=== PATIENT | female | born 1960 | race Caucasian/White ===

== ENCOUNTER 2017-07-15 10:03 | Emergency (ER) | payer SELFPAY ==
[~2017-07-15] VITALS: Ht 165.1 cm; Wt 72.0 kg
[~2017-07-15 10:03] MED LIST: GABA100C4 PO; PERC5TAB12 PO
[2017-07-15 10:10] VITALS: BP 157/92; PULSE 88; RESP 16; TEMP 99.7; O2SAT 99
[2017-07-15] MEDS ORDERED: AUGM500T7 PO (10:25)
--- NOTE | 2017-07-15 10:25 | PD ---
HPI Chief Complaint: Bite or Sting Time Seen by Provider: 10:21 Travel History International Travel<30 days: No Contact w/Intl Traveler<30days: No Traveled to known affect area: No History of Present Illness HPI 57-year-old female patient presents to the ER today because she states that she was bitten by her cat on the left arm and right hand on Thursday, and the left arm area is getting more red and swollen. She denies any fevers or any other issues. She states that her cat is entirely indoor although it has not had rabies vaccination in several years. She states that the cat has not been behaving abnormally and that the cat has not had any contact with any other outdoor animals. Modifying Factors: None Associated Signs & Symptoms: Cat bites to the arm and hand Risk Factors: None PFSH Past Medical History Diminished Hearing: No Reproductive: Yes (IUD) Shingles: Yes Tetanus Vaccination: Unknown Influenza Vaccination: No ?: Not Past Surgical History Tonsillectomy: Yes Other Surgery: Yes (BIOPSY OF BREAST) Social History Alcohol Use: Yes (WEEKENDS) Tobacco Use: Yes (1 PPD) Substance Use: No Allergies-Medications (Allergen,Severity, Reaction): Coded Allergies: No Known Allergies (Verified , 07/15/17) Reported Meds & Prescriptions Reported Meds & Active Scripts Active No Active Prescriptions or Reported Medications Review of Systems Except as stated in HPI: all other systems reviewed are Neg Physical Exam Narrative GENERAL: Well-developed middle age white female patient currently in no acute distress. Awake and oriented 3. SKIN: Focused skin assessment warm/dry. Notable 2 puncture wounds and abrasion to the left arm with surrounding erythema with no fluctuance, mildly tender palpation; and 2 puncture wounds to the right hand with no significant surrounding erythema. HEAD: Atraumatic. Normocephalic. EYES: Pupils equal and round. No scleral icterus. No injection or drainage. ENT: No nasal bleeding or discharge. Mucous membranes pink and moist. NECK: Trachea midline. No JVD. CARDIOVASCULAR: Regular rate and rhythm. No murmur appreciated. RESPIRATORY: No accessory muscle use. Clear to auscultation. Breath sounds equal bilaterally. GASTROINTESTINAL: Abdomen soft, non-tender, nondistended. Hepatic and splenic margins not palpable. MUSCULOSKELETAL: No obvious deformities. No clubbing. No cyanosis. No edema. NEUROLOGICAL: Awake and alert. No obvious cranial nerve deficits. Motor grossly within normal limits. Normal speech. PSYCHIATRIC: Appropriate mood and affect; insight and judgment normal. Data Data Last Documented VS Vital Signs Date Time Temp Pulse Resp B/P (MAP) Pulse Ox O2 Delivery O2 Flow Rate FiO2 07/15/17 10:10 99.7 88 16 157/92 (113) 99 MDM Medical Decision Making Medical Screen Exam Complete: Yes Emergency Medical Condition: Yes Medical Record Reviewed: Yes Differential Diagnosis Cat bite to the hand/cellulitis Narrative Course Animal is fairly low risk for rabies since is entirely indoors. However, she is told to watch her cat over the next few weeks and should have her Cat evaluated should it start behaving abnormally or appears ill. She will be given Augmentin for treatment of cellulitis. Return for any worsening in pain, redness, fevers, new symptoms as needed. The plan has been discussed with her and she states understanding. Diagnosis Primary Impression: Cat bite of forearm Additional Impression: Cat bite of hand Med/Other Pt SpecificInfo: Prescription(s) given Scripts Amoxicillin-Clavulanate (Augmentin) 500-125 mg Tab 500 MG PO Q8H for Infection for 7 Days, TAB 0 Refills Prov: Garcia Orourke MD 07/15/17 Disposition: 01 DISCHARGE HOME Condition: Stable Gracia Orourke MD Jul 15, 2017 10:25
[2017-07-15] MEDS ORDERED: AMOXICILLIN/CLAVULANATE K 875 MG TAB PO ONE (10:30)
[2017-07-15] MEDS ORDERED: TETANUS/DIPHTHERIA TOXOID ADULT 0.5 ML VIAL IM ONE (10:30)
== END 2017-07-15 11:04 | disposition home or self-care (01) ==
LOC: PHED 10:03
DX: S51.852A Open bite of left forearm, initial encounter (principal); S61.451A Open bite of right hand, initial encounter; L03.114 Cellulitis of left upper limb; F17.200 Nicotine dependence, unspecified, uncomplicated; Z23 Encounter for immunization; Z86.69 Personal history of other diseases of the nervous system and sense organs; W55.01XA Bitten by cat, initial encounter
CPT/HCPCS: 90471; 90714